=== PATIENT | male | born 1965 | race Caucasian/White ===

== ENCOUNTER 2017-10-05 23:47 | Emergency (ER) | payer SELFPAY ==
[2017-10-06 00:06] VITALS: BP 141/93; PULSE 81; RESP 16; TEMP 98.3; O2SAT 98
[2017-10-06] MEDS ORDERED: Sodium Chloride 0.9% 1,000 ML IV STA (00:12)
--- NOTE | 2017-10-06 00:22 | ED PDOC ---
HPI: Male Pain Time Seen by Provider: 10/06/17 00:03 Chief Complaint (Nursing): Male Genitourinary Chief Complaint (Provider): dysuria History Per: Patient History/Exam Limitations: no limitations Onset/Duration Of Symptoms: Days (1 month), Waxing/Waning Current Symptoms Are (Timing): Still Present Quality Of Discomfort: Burning Additional Complaint(s): 52 y/o male presents with intermittent dysuria x 1 month. Patient was prescribed 10 day course of Cipro 500mg twice daily on 09/09; states after finishing he still had symptoms. Patient states as of 4 days ago he noticed right low back pain, and hematuria 2 days ago. Denies fever, nausea/vomiting, chest pain, shortness of breath, palpitations, changes in bowel movements, penile pain/discharge, testicular pain/swelling. Past Medical History Reviewed: Historical Data, Nursing Documentation, Vital Signs Vital Signs: Last Vital Signs Temp 98.3 F 10/06/17 00:00 Pulse 81 10/06/17 00:00 Resp 16 10/06/17 00:00 BP 141/93 H 10/06/17 00:00 Pulse Ox 98 10/06/17 00:00 - Medical History PMH: No Chronic Diseases - Surgical History Surgical History: No Surg Hx - Family History Family History: States: No Known Family Hx - Home Medications Home Medications: Ambulatory Orders Medication Instructions Recorded Ibuprofen [Motrin] 600 mg PO Q6H PRN #20 tab 05/30/15 Ibuprofen [Motrin Tab] 1 tab PO Q6 PRN #15 tab 10/06/17 Phenazopyridine HCl [Pyridium] 100 mg PO TID PRN #6 tab 10/06/17 - Allergies Allergies/Adverse Reactions: Allergies Allergy/AdvReac Type Severity Reaction Status Date / Time No Known Allergies Allergy Verified 05/30/15 20:08 Review of Systems ROS Statement: Except As Marked, All Systems Reviewed And Found Negative Genitourinary Male: Positive for: Dysuria, Hematuria Musculoskeletal: Positive for: Back Pain Physical Exam - Reviewed Nursing Documentation Reviewed: Yes Vital Signs Reviewed: Yes - Physical Exam Appears: Positive for: Well, Non-toxic, No Acute Distress Head Exam: Positive for: ATRAUMATIC, NORMAL INSPECTION, NORMOCEPHALIC Skin: Positive for: Normal Color Eye Exam: Positive for: Normal appearance Cardiovascular/Chest: Positive for: Regular Rate, Rhythm Respiratory: Positive for: Normal Breath Sounds Gastrointestinal/Abdominal: Positive for: Normal Exam, Bowel Sounds, Soft Male Genital Exam: Positive for: normal genitalia, other (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 Negative for: bleeding, scrotum tenderness (R), scrotum tenderness (L ), testicular tenderness (R), testicular tenderness (L), urethral discharge Back: Positive for: Normal Inspection. Negative for: L CVA Tenderness, R CVA Tenderness Extremity: Positive for: Normal ROM Neurologic/Psych: Positive for: Alert, Oriented - Laboratory Results Result Diagrams: 10/06/17 00:35 10/06/17 00:35 - ECG O2 Sat by Pulse Oximetry: 98 - Progress ED Course And Treament: labs, urine, IV fluids, IV toradol EXAM: CT Abdomen and Pelvis Without Intravenous Contrast CLINICAL HISTORY: 52 years old, male; Pain; Abdominal pain; Flank; Right; Additional info: Right flank pain, dysuria TECHNIQUE: Axial computed tomography images of the abdomen and pelvis without intravenous contrast. All CT scans at this facility use one or more dose reduction techniques, viz.: automated exposure control; ma/kV adjustment per patient size (including targeted exams where dose is matched to indication; i.e. head); or iterative reconstruction technique. 629 images are submitted. Coronal and sagittal reformatted images were created and reviewed. COMPARISON: No relevant prior studies available. FINDINGS: Limitations: Absence of IV contrast decreases sensitivity for detecting vascular and visceral injury and abnormality. Lower thorax: Small hiatal hernia. ABDOMEN: Liver: Unremarkable. Gallbladder and bile ducts: Partially distended gallbladder with hyperdense sludge or gallstones. Pancreas: Unremarkable. No ductal dilation. Spleen: Unremarkable. No splenomegaly. Adrenals: Unremarkable. No mass. Kidneys and ureters: Unremarkable. No obstructing stones. No hydronephrosis. Stomach and bowel: Diverticulosis. Moderate amount of stool in the colon. No obstruction. No mucosal thickening. Appendix: Appendix is seen and is top normal in thickness measuring 6 to 7 mm with no periappendiceal stranding. PELVIS: Bladder: Partially decompressed bladder with bladder wall thickening. Correlation with urinalysis is recommended only if clinical cystitis is suspected. Possible urachal remnant. Reproductive: Mild enlargement of prostate gland. ABDOMEN and PELVIS: Intraperitoneal space: Unremarkable. No free air. No significant fluid collection. Bones/joints: No acute fracture. No dislocation. Soft tissues: There is a fat-containing umbilical hernia. Vasculature: The aorta is normal in caliber and there are no keanu-aortic collections. Lymph nodes: Unremarkable. No enlarged lymph nodes. IMPRESSION: 1. Partially decompressed bladder with bladder wall thickening. Correlation with urinalysis is recommended only if clinical cystitis is suspected. Patient educated on findings, discharged with rx Pyridium, ibuprofen. Advised follow up Urology. Return precautions given. Disposition - Clinical Impression Clinical Impression: Back pain, Dysuria - Patient ED Disposition Is Patient to be Admitted: No Counseled Patient/Family Regarding: Studies Performed, Diagnosis, Need For Followup, Rx Given - Disposition Referrals: Ezekiel Carey MD [Medical Doctor] - Disposition: Routine/Home Disposition Time: 02:11 Condition: IMPROVED Prescriptions: Ibuprofen [Motrin Tab] 1 tab PO Q6 PRN #15 tab PRN Reason: Pain, Moderate (4-7) Phenazopyridine HCl [Pyridium] 100 mg PO TID PRN #6 tab PRN Reason: Urinary Discomt Instructions: Dysuria, Adult (DC), Low Back Pain (DC) Print Language: TANZANIAN
[2017-10-06 00:56] LABS: BASO # 0.1 K/uL (0.0-0.2); BASO % 1.1 % (0.0-2.0); EOS # 0.3 K/uL (0.0-0.7); EOS % 2.8 % (0.0-4.0); HEMOGLOBIN 15.2 g/dL (12.0-18.0); LYMPH # 3.2 K/uL (1.0-4.3); MEAN CELL VOLUME 93.1 fl (80.0-94.0); MEAN CORPUSCULAR HEMOGLOBIN 31.6 pg (27.0-31.0); MEAN CORPUSCULAR HGB CONC 33.9 g/dL (33.0-37.0); MEAN PLATELET VOLUME 7.6 fl (7.2-11.7); MONO # 0.7 K/uL (0.0-0.8); MONO % 7.1 % (0.0-10.0); NRBC % 0.2 % (0.0-0.0); RBC 4.82 Mil/uL (4.40-5.90); RED CELL DISTRIBUTION WIDTH 12.6 % (11.5-14.5); WHITE BLOOD COUNT 9.2 K/uL (4.8-10.8)
[2017-10-06 01:01] LABS: URINE BACTERIA RARE (<OCC); URINE BILIRUBIN NEGATIVE (NEGATIVE); URINE BLOOD NEGATIVE (NEGATIVE); URINE CLARITY SLIGHTY-CLOUDY (Clear); URINE COLOR YELLOW (YELLOW); URINE GLUCOSE (UA) NEG (Normal); URINE LEUKOCYTE ESTERASE NEG Leu/uL (Negative); URINE PROTEIN NEGATIVE (NEGATIVE); URINE UROBILINOGEN 0.2-1.0 mg/dL (0.2-1.0)
[2017-10-06 01:30] LABS: BLOOD UREA NITROGEN 17 mg/dl (9-20); GFR AFRICAN-AMERICAN > 60; GFR NON-AFRICAN AMERICAN > 60
[2017-10-06 01:31] LABS: ALB/GLOB RATIO 1.3 (1.0-2.1); ALBUMIN 4.3 g/dL (3.5-5.0); ALT/SGPT 40 U/L (21-72); AST/SGOT 22 U/L (17-59); CALCIUM 9.1 mg/dL (8.4-10.2); URIC ACID 6.7 mg/Dl (3.5-8.5)
--- NOTE | 2017-10-06 01:50 | CT ---
EXAM: CT Abdomen and Pelvis Without Intravenous Contrast CLINICAL HISTORY: 52 years old, male; Pain; Abdominal pain; Flank; Right; Additional info: Right flank pain, dysuria TECHNIQUE: Axial computed tomography images of the abdomen and pelvis without intravenous contrast. All CT scans at this facility use one or more dose reduction techniques, viz.: automated exposure control; ma/kV adjustment per patient size (including targeted exams where dose is matched to indication; i.e. head); or iterative reconstruction technique. 629 images are submitted. Coronal and sagittal reformatted images were created and reviewed. COMPARISON: No relevant prior studies available. FINDINGS: Limitations: Absence of IV contrast decreases sensitivity for detecting vascular and visceral injury and abnormality. Lower thorax: Small hiatal hernia. ABDOMEN: Liver: Unremarkable. Gallbladder and bile ducts: Partially distended gallbladder with hyperdense sludge or gallstones. Pancreas: Unremarkable. No ductal dilation. Spleen: Unremarkable. No splenomegaly. Adrenals: Unremarkable. No mass. Kidneys and ureters: Unremarkable. No obstructing stones. No hydronephrosis. Stomach and bowel: Diverticulosis. Moderate amount of stool in the colon. No obstruction. No mucosal thickening. Appendix: Appendix is seen and is top normal in thickness measuring 6 to 7 mm with no periappendiceal stranding. PELVIS: Bladder: Partially decompressed bladder with bladder wall thickening. Correlation with urinalysis is recommended only if clinical cystitis is suspected. Possible urachal remnant. Reproductive: Mild enlargement of prostate gland. ABDOMEN and PELVIS: Intraperitoneal space: Unremarkable. No free air. No significant fluid collection. Bones/joints: No acute fracture. No dislocation. Soft tissues: There is a fat-containing umbilical hernia. Vasculature: The aorta is normal in caliber and there are no keanu-aortic collections. Lymph nodes: Unremarkable. No enlarged lymph nodes. IMPRESSION: 1. Partially decompressed bladder with bladder wall thickening. Correlation with urinalysis is recommended only if clinical cystitis is suspected.
== END 2017-10-06 02:43 | disposition home or self-care (01) ==
LOC: H.ER 23:47
DX: R30.0 Dysuria (principal); M54.9 Dorsalgia, unspecified
CPT/HCPCS: 74176; 80053; 81003; 84550; 85025; 96360; 99282; J1885; J7040

== ENCOUNTER 2017-10-13 21:21 | Emergency (ER) | payer SELFPAY ==
--- NOTE | 2017-10-13 23:11 | ED PDOC ---
HPI: Male Pain Time Seen by Provider: 10/13/17 22:26 Chief Complaint (Nursing): Male Genitourinary Chief Complaint (Provider): Genitourinary problem History Per: Patient History/Exam Limitations: no limitations Onset/Duration Of Symptoms: Unknown ( states issue pain and symptoms have been on-going for months) Current Symptoms Are (Timing): Still Present Additional Complaint(s): 52 yo male, accompanied by his , presents to the ED complaining of lower abdominal pain and hematuria, onset of "months", according to the . Patient reports constantly feeling like something is going through his penis. Today he expelled a blood clot, resulting in some pain relief, but still complains of irritation. He also informs the provider that he believes his right testicle is swollen compared to the left. Patient was seen by his urologist, Rafi Jaimes, 2 days ago where he was given a prescription for Maloxicam, but experience no relief. He denies any fevers, chills, nausea, or vomiting. Past Medical History Reviewed: Historical Data, Nursing Documentation, Vital Signs Vital Signs: Last Vital Signs Temp 98.2 F 10/13/17 21:28 Pulse 75 10/13/17 21:28 Resp 16 10/13/17 21:28 BP 148/92 H 10/13/17 21:28 Pulse Ox 99 10/13/17 21:28 - Medical History PMH: No Chronic Diseases - Surgical History Surgical History: No Surg Hx - Family History Family History: States: Unknown Family Hx - Living Arrangements Living Arrangements: With Family - Social History Current smoker - smoking cessation education provided: Yes Ex-Smoker (has not smoked in the last 12 months): No Alcohol: None Drugs: Denies - Home Medications Home Medications: Ambulatory Orders Medication Instructions Recorded Ibuprofen [Motrin] 600 mg PO Q6H PRN #20 tab 05/30/15 Ibuprofen [Motrin Tab] 1 tab PO Q6 PRN #15 tab 10/06/17 Phenazopyridine HCl [Pyridium] 100 mg PO TID PRN #6 tab 10/06/17 Nitrofurantoin Macrocrystals 100 mg PO BID 5 Days cap 10/14/17 [Macrobid] - Allergies Allergies/Adverse Reactions: Allergies Allergy/AdvReac Type Severity Reaction Status Date / Time No Known Allergies Allergy Verified 10/13/17 21:28 Review of Systems ROS Statement: Except As Marked, All Systems Reviewed And Found Negative Constitutional: Negative for: Fever, Chills Gastrointestinal: Positive for: Abdominal Pain (lower abdomen). Negative for: Nausea, Vomiting Genitourinary Male: Positive for: Hematuria Physical Exam - Reviewed Nursing Documentation Reviewed: Yes Vital Signs Reviewed: Yes - Physical Exam Appears: Positive for: Well, Non-toxic, No Acute Distress Head Exam: Positive for: ATRAUMATIC, NORMAL INSPECTION, NORMOCEPHALIC Skin: Positive for: Normal Color, Warm, DRY Eye Exam: Positive for: EOMI, Normal appearance, PERRL ENT: Positive for: Normal ENT Inspection Neck: Positive for: Normal, Painless ROM Cardiovascular/Chest: Positive for: Regular Rate, Rhythm. Negative for: Murmur Respiratory: Positive for: Normal Breath Sounds. Negative for: Respiratory Distress Gastrointestinal/Abdominal: Positive for: Normal Exam, Soft. Negative for: Tenderness Male Genital Exam: Positive for: normal genitalia Back: Positive for: Normal Inspection Extremity: Positive for: Normal ROM. Negative for: Pedal Edema, Deformity Neurologic/Psych: Positive for: Alert, Oriented - Laboratory Results Result Diagrams: 10/13/17 23:51 10/13/17 23:51 - ECG O2 Sat by Pulse Oximetry: 99 (RA) Pulse Ox Interpretation: Normal Medical Decision Making Medical Decision Making: Time: --22:52 Impression: --Kidney stone vs UTI Plan: --CT ABD & Pelvis IV contrast --Labs --Chlamydia/GC RNA --Toradol 30mg IVP --Urine Culture --Urinalysis --US Testes Duplex Complete Reassess --patient had workup less than one week ago. The provider will repeat workup to see if any acute changes or concerning findings have developed since previous evaluation --23:43 EXAM: US Scrotum CLINICAL HISTORY: 52 years old, male; Pain; Scrotum pain; Additional info: Testicular pain TECHNIQUE: Real-time ultrasound of the scrotum with color Doppler and image documentation. COMPARISON: No relevant prior studies available. FINDINGS: Right testicle: No mass. No torsion. Left testicle: No mass. No torsion. Epididymides: Unremarkable as visualized. Scrotum: Small right hydrocele. Small left hydrocele. Right varicocele. IMPRESSION: 1. No definite sonographic evidence of testicular torsion. 2. Incidental/non-acute findings are described above. 2AM Patient is feeling much better, results provided to patient. Advised patient to call Dr. Carey's office to make a followup. Will treat for clinical UTI w/ macrobid. Return precautions were discussed. Patient well appearing, happy, upon discharge. Scribe Attestation: Documented by Gustavo Birch acting as a scribe for Andrea Maya MD. Provider Attestation: All medical record entries made by the Scribe were at my direction and personally dictated by me. I have reviewed the chart and agree that the record accurately reflects my personal performance of the history, physical exam, medical decision making, and the department course for this patient. I have also personally directed, reviewed, and agree with the discharge instructions and disposition. Disposition - Clinical Impression Clinical Impression: Dysuria - Disposition Referrals: Ezekiel Carye MD [Medical Doctor] - Disposition: Routine/Home Disposition Time: 02:00 Condition: IMPROVED Prescriptions: Nitrofurantoin Macrocrystals [Macrobid] 100 mg PO BID 5 Days cap Instructions: Dysuria, Adult (DC) Forms: [facility] (Slovak) Print Language: CITIZEN OF [place]
--- NOTE | 2017-10-13 23:43 | US ---
EXAM: US Scrotum CLINICAL HISTORY: 52 years old, male; Pain; Scrotum pain; Additional info: Testicular pain TECHNIQUE: Real-time ultrasound of the scrotum with color Doppler and image documentation. COMPARISON: No relevant prior studies available. FINDINGS: Right testicle: No mass. No torsion. Left testicle: No mass. No torsion. Epididymides: Unremarkable as visualized. Scrotum: Small right hydrocele. Small left hydrocele. Right varicocele. IMPRESSION: 1. No definite sonographic evidence of testicular torsion. 2. Incidental/non-acute findings are described above.
[2017-10-13 23:54] LABS: BASO # 0.1 K/uL (0.0-0.2); EOS # 0.3 K/uL (0.0-0.7); EOS % 3.4 % (0.0-4.0); HEMOGLOBIN 14.8 g/dL (12.0-18.0); LYMPH # 2.9 K/uL (1.0-4.3); LYMPH % 32.3 % (20.0-40.0); MEAN CELL VOLUME 92.5 fl (80.0-94.0); MEAN CORPUSCULAR HGB CONC 34.6 g/dL (33.0-37.0); MEAN PLATELET VOLUME 7.6 fl (7.2-11.7); MONO # 0.7 K/uL (0.0-0.8); MONO % 7.2 % (0.0-10.0); NEUT # 5.1 K/uL (1.8-7.0); NEUT % 56.1 % (50.0-75.0); NRBC % 0.1 % (0.0-0.0); RBC 4.63 Mil/uL (4.40-5.90); RED CELL DISTRIBUTION WIDTH 12.8 % (11.5-14.5); WHITE BLOOD COUNT 9.1 K/uL (4.8-10.8)
[2017-10-14 00:05] LABS: ALB/GLOB RATIO 1.3 (1.0-2.1); ALBUMIN 4.2 g/dL (3.5-5.0); ALT/SGPT 39 U/L (21-72); AST/SGOT 21 U/L (17-59); BLOOD UREA NITROGEN 17 mg/dl (9-20); CALCIUM 8.8 mg/dL (8.4-10.2); GFR AFRICAN-AMERICAN > 60; GFR NON-AFRICAN AMERICAN > 60
[2017-10-14] MEDS ORDERED: Iohexol 300 100 ML IJ ONE (00:44)
[2017-10-14] MEDS ORDERED: Sodium Chloride 0.9% 100 ML ONE (00:49)
[2017-10-14 00:54] LABS: URINE BILIRUBIN NEGATIVE (NEGATIVE); URINE BLOOD NEGATIVE (NEGATIVE); URINE CLARITY CLEAR (Clear); URINE COLOR STRAW (YELLOW); URINE GLUCOSE (UA) NEG (Normal); URINE LEUKOCYTE ESTERASE NEG Leu/uL (Negative); URINE PROTEIN NEGATIVE (NEGATIVE); URINE UROBILINOGEN 0.2-1.0 mg/dL (0.2-1.0)
--- NOTE | 2017-10-14 01:53 | CT ---
EXAM: CT Abdomen and Pelvis With Intravenous Contrast CLINICAL HISTORY: 52 years old, male; Pain; Other: Painful urination; Additional info: Lower abd pain, hematuria TECHNIQUE: Axial computed tomography images of the abdomen and pelvis with intravenous contrast. All CT scans at this facility use one or more dose reduction techniques, viz.: automated exposure control; ma/kV adjustment per patient size (including targeted exams where dose is matched to indication; i.e. head); or iterative reconstruction technique. Coronal and sagittal reformatted images were created and reviewed. CONTRAST: 95 mL of omnipaque 300 administered intravenously. COMPARISON: CT - ABD PELVIS W/O PO OR IV CONT 2017-10-06 00:52 FINDINGS: Lower thorax: Minimal peripheral atelectasis/scarring. Probable small hiatal hernia. ABDOMEN: Liver: Fatty infiltration. Gallbladder and bile ducts: No calcified stones. No ductal dilation. Pancreas: No ductal dilation. No mass. Spleen: 0.7 x 0.7 x 0.7 cm enhancing lesion. Adrenals: No mass. Kidneys and ureters: Too small to characterize lesion within RIGHT kidney. No hydronephrosis. Stomach and bowel: Scattered diverticula within colon. No associated inflammatory stranding. No definite mural thickening. No obstruction. Appendix: Normal caliber. No inflammation. PELVIS: Bladder: Unremarkable. Reproductive: Mildly enlarged prostate. ABDOMEN and PELVIS: Intraperitoneal space: No significant fluid collection. No free air. Bones/joints: Early degenerative changes of spine. No acute fracture. Soft tissues: Tiny umbilical hernia containing fat. Vasculature: Minimal atherosclerotic disease of iliac arteries. No aneurysm. Lymph nodes: No pathologically enlarged lymph nodes. IMPRESSION: 1. No definite acute intraabdominal abnormality. 2. Splenic lesion, indeterminate. Recommend nonemergent MRI. 3. Prostate enlargement. Followup as clinically warranted. 4. Incidental/non-acute findings are described above.
[2017-10-14 02:23] VITALS: BP 111/73; PULSE 62; RESP 17; TEMP 97.8; O2SAT 96
== END 2017-10-14 02:23 | disposition home or self-care (01) ==
LOC: H.ER 21:21
DX: N39.0 Urinary tract infection, site not specified (principal); R30.0 Dysuria; F17.200 Nicotine dependence, unspecified, uncomplicated
CPT/HCPCS: 74177; 80053; 81003; 85025; 87086; 87491; 87591; 93975; 96374; 99282; J1885; Q9967